=== PATIENT | male | born 1950 | race Caucasian/White ===

== ENCOUNTER → 2022-11-26 08:59 | Outpatient (BNVA) | payer MEDICARE, SELFPAY | PROVIDERS: Family Provider Nurse Practitioner; PCP Nurse Practitioner; Visit Provider Family Medicine | DX: Z00.00 Encounter for general adult medical examination without abnormal findings (principal); Z13.6 Encounter for screening for cardiovascular disorders | CPT/HCPCS: 80053; 80061; 85025 ==

== ENCOUNTER → 2022-12-02 10:23 | Outpatient (BNVA) | payer MEDICARE, SELFPAY | PROVIDERS: Family Provider Nurse Practitioner; PCP Nurse Practitioner; Visit Provider Otolaryngology | DX: R49.0 Dysphonia (principal); J38.3 Other diseases of vocal cords | CPT/HCPCS: 31575; 99205 ==

== ENCOUNTER 2022-12-08 10:12 | Day surgery (SDC) | payer MEDICARE, SELFPAY ==
[2022-12-04 08:46] VITALS: BMI 27.8
[2022-12-08] VITALS (8 sets, daily range): BP systolic 132–173; BP diastolic 83–103; PULSE 49–61; RESP 8–16; TEMP 36.1–36.6; O2SAT 96–99
--- NOTE | 2022-12-08 11:06 | ANES.PREANE2 ---
Pre-Anesthetic Assessment Height/Weight: Height 1.8 m Weight 90.718 kg Temp Pulse Resp BP Pulse Ox O2 Del Method 97.2 F L 58 L 16 173/103 97 Room Air 12/08/22 11:04 12/08/22 11:04 12/08/22 11:04 12/08/22 11:04 12/08/22 11:04 12/08/22 10:58 Operation Date: 12/08/22 12:00 Proposed Procedures p [id number] - direct laryngoscopy with biopsies J38.3(Not Applicable) - Dave Smith MD Familial anesthetic complications: None Was Beta Rachael taken within 24 hours: N/A Was Clonidine taken within 24 hours: N/A Last intake: Intake Last Liquid Date 12/07/22 Last Liquid Time 21:00 Last Solid Date 12/07/22 Last Solid Time 21:00 Social No alcohol and No tobacco Exam alert, oriented x 3, clear to auscultation bilaterally and regular rate & rhythm Airway Mallampati: Class III Dentition: full Anesthetic Plan ASA status: 2 Anesthesia: General Risk of > 500 ml blood loss (7ml/kg in children): No Medications/Allergies Home Medications Medication Instructions Recorded Confirmed Last Taken Type No Known Home Medications 11/25/22 12/04/22 Unknown History Allergies Allergy/AdvReac Type Severity Reaction Status Date / Time No Known Allergies Allergy Verified 12/08/22 10:55 [facility] Anesthesia Social History Smoking and tobacco status: former smoker Alcohol intake: former Data Anesthesia Cardiac Studies: No Data to Display
[2022-12-08] MEDS: sodium chloride 0.9% 1,000 ML 30 ML IV (11:09)
--- NOTE | 2022-12-08 11:49 | W.PM.OPSUD ---
Surgery/Procedure H&P Update DATE OF PROCEDURE: December 08, 2022 DATE H&P PERFORMED: 12/02/22 H&P UPDATE INFORMATION: I have reviewed H&P completed within last 30 days, I have examined patient prior to procedure and No changes to prior documentation CHANGES TO PREVIOUS DOCUMENTATION: no changes PREOP DIAGNOSIS: Left vocal cord lesions PRIMARY INDICATION FOR PROCEDURE: Left vocal cord lesions with chronic hoarseness PLANNED PROCEDURE: Operation Date: 12/08/22 12:00 Proposed Procedures p [id number] - direct laryngoscopy with biopsies J38.3(Not Applicable) - Dave Smith MD
[2022-12-08] MEDS: ceFAZolin 2,000 MG in sodium chloride 0.9% (plus) 50 ML 100 MG IV (11:57)
[2022-12-08] MEDS: EPINEPHrine 1 mg/mL INJ XX (12:16)
--- NOTE | 2022-12-08 12:38 | P.OP_ITS ---
Operative Report Date of procedure: December 08, 2022 Pre-op diagnosis: Left true vocal cord lesions with chronic hoarseness Post-op diagnosis: Same Post-op findings: Exophytic lobulated gross from left anterior true vocal cord Procedure done: Direct suspension microscopic laryngoscopy with biopsies of left true vocal cord lesions Implants: No implants Specimens removed/disposition: Left true vocal cord lesion specimens for permanent section Pathology: Same Surgeon: Dave Smith MD Anesthesia: General Estimated blood loss: 10 mL Complications: No complications encountered Findings: Left true vocal cord lesions causing chronic hoarseness Brief History: 71-year-old male patient who has been chronically hoarse for months. Worsening. Found on flexible laryngoscopy to have multilobulated exophytic reddish lesions extending from the anterior half of the cord up to near the anterior commissure. Patient therefore being brought to the operating room to undergo direct suspension microscopic laryngoscopy with biopsy. The procedure its risks and complications have been explained in detail. Informed consent was granted and witnessed. Risks discussed included bleeding and infection and scarring and persistent hoarseness and need for additional treatment as this is a diagnostic procedure only as well as anesthetic risks. Procedure: Description of procedure: The patient was placed on the operating table in the supine position. Adequate general endotracheal tube anesthesia was obtained. A timeout was accomplished identifying the patient date of plan procedure allergies fire risk and medications given. With all in agreement the procedure continued. The table was rotated 90 degrees. His eyes were protected. His head was dropped 15 degrees to the horizontal. They noticed 4 x 4 was placed over his upper dentition. An anterior commissure laryngoscope was inserted and placed and positioned with suspension to a Anne stand. Microscopic visualization was done with the 400 lens. The left exophytic true vocal cord lesion was biopsied and small pieces. Most of the lesion was removed. Bleeding was encountered and controlled with application of 1-1000 epinephrine on cottonoids. After several minutes the bleeding was controlled. The scope was taken down from suspension. The visualization continued directly through the scope suctioning as I withdrew the scope. Then the sponge was removed from the upper dentition. A Yankauer suction was then used to suction the oropharynx and the head was returned to the upright position. Again more suctioning was accomplished. There was no sign of any active bleeding. The patient was r eturned to anesthesia for wake-up and extubation. Patient tolerated the procedure well had an estimated blood loss of 10 mL and arrived in recovery in stable condition.
--- NOTE | 2022-12-08 13:29 | ANE.PACU2 ---
Inpatient post-anesthesia follow up: Airway intact: Yes Vital signs: Temperature 98 F Pulse Rate 50 Respiratory Rate 15 Blood Pressure 132/86 Pulse Oximetry 99 Oxygen Delivery Me thod Room Air Oxygen Flow Rate 6 Fraction of Inspir ed Oxygen Hydration adequate: Yes Nausea and vomiting: No Pain level: 1 Mental status: Baseline
== END 2022-12-08 13:50 | disposition home or self-care (01) ==
PROVIDERS: PCP Family Medicine; Visit Provider Otolaryngology
PROC: 0CJS8ZZ Inspection of Larynx, Via Natural or Artificial Opening Endoscopic (ICD-10-PCS; CPT 31536; principal; 2022-12-08 12:00)
DX: R49.0 Dysphonia (principal); C32.0 Malignant neoplasm of glottis; Z87.891 Personal history of nicotine dependence
CPT/HCPCS: 31536; 88305; 88342; J0171; J0330; J0690; J1100; J2405; J2704; J3010; J3490; J7030

== ENCOUNTER 2022-12-10 14:49 | Outpatient (CLI) | payer MEDICARE, SELFPAY ==
--- NOTE | 2022-12-10 15:02 | CT_ITS ---
WS: [id number] CT NECK TECHNIQUE: Contrast-enhanced CT of the neck with coronal and sagittal reformatted images. CLINICAL INFORMATION: R49.0 - Dysphonia COMPARISON: None. DLP: 284.[address] scans at [facility] use at least one of these dose optimization techniques: automated e xposure control; mA and/or kV adjustment per patient size (includes targeted exams where dose is matc hed to clinical indication); or iterative reconstruction. FINDINGS: LEFT thyroid nodule measuring 2.3 x 1.9 cm. Small retention cyst or polyp LEFT maxillary sinus. Masto id air cells are well aerated. Mild mucosal thickening in the maxillary sinuses. Tongue base appears normal. Filling of the RIGHT valleculae with low-attenuation fluid or secretions. Recommend correlati on with the recent endoscopy. In addition polypoid LEFT vocal cord lesion measuring 8 mm. Normal piri form sinuses. Normal subglottic airway. Emphysematous changes in the lung apices.Parotid glands are normal. Normal submandibular glands. No c ervical lymphadenopathy. Mild carotid bulb calcification. Mild spondylitic changes cervical spine. IMPRESSION: 1. Polypoid exophytic lesion projecting medially from the LEFT vocal cord measuring 8 mm suspicious for neoplasm. Recommend correlation with recent endoscopy and biopsy. 2. Low-attenuation fluid or secretions within the RIGHT vallecula. Recommend correlation with recent endoscopy. 3. No cervical lymphadenopathy. 4. Salivary glands are normal. 5. Low-attenuation LEFT thyroid nodule measuring 2.3 x 1.9 cm. 6. No other acute findings.
[2022-12-10] MEDS: iohexol 350 mg/mL 500 mL Btl (per mL) IV (15:21)
== END 2022-12-10 14:50 | disposition home or self-care (01) ==
LOC: RAD 14:52
PROVIDERS: PCP Family Medicine; Visit Provider Family Medicine
DX: R49.0 Dysphonia (principal); J38.3 Other diseases of vocal cords; E04.1 Nontoxic single thyroid nodule
CPT/HCPCS: 70491; Q9967

== ENCOUNTER 2022-12-15 11:55 | Outpatient (CLI) | payer MEDICARE, SELFPAY ==
--- NOTE | 2022-12-15 12:15 | MR_ITS ---
WS: [id number] MRI LUMBAR SPINE WITH CONTRAST TECHNIQUE: Sagittal T1, T2 and STIR imaging. Axial T1 and T2 imaging. Post gadolinium imaging was obt ained. CLINICAL INFORMATION: M54.16 - Radiculopathy, lumbar region COMPARISON: None. FINDINGS: Mild lumbar curve. No acute compression. L1-L2: Mild annular bulging with slight narrowing of the LEFT subarticular recess. Mild facet arthrop athy. Mild LEFT foraminal narrowing. L2-L3: Mild annular bulging. Impingement LEFT subarticular recess and traversing LEFT L3 nerve root. Mild facet arthropathy. Mild LEFT foraminal narrowing with LEFT foraminal protrusion. L3-L4: Shallow central disc protrusion. Moderate central canal stenosis. Impingement traversing L4 ne rve roots. Moderate facet arthropathy. Small bilateral foraminal protrusions with moderate RIGHT and mild LEFT foraminal narrowing. Moderate facet arthropathy. L4-L5: Mild annular bulging with moderate central canal stenosis. Moderate facet arthropathy with lig amentum flavum hypertrophy. Impingement traversing L5 nerve roots bilaterally RIGHT greater than LEFT . Moderate RIGHT and mild LEFT foraminal narrowing. L5-S1: Shallow LEFT paracentral protrusion. Slight impingement LEFT S1 nerve root. Moderate to advan maria ines facet arthropathy. Tiny annular fissure. Foramen are patent. Visualized pelvic bony structures: Normal. Paravertebral soft tissues: Normal. IMPRESSION: 1. Mild lumbar curve. No acute compression. 2. Moderate central canal stenosis L3-4 with central disc protrusion combination with facet arthropa thy. Impingement traversing L4 nerve roots bilaterally. 3. Moderate central canal stenosis L4-5 impinges the traversing L5 nerve roots greater than LEFT. Mo derate RIGHT L4-5 foraminal narrowing impinges the exiting RIGHT L4 nerve root. 4. Moderate RIGHT L3-4 foraminal narrowing with a small RIGHT foraminal protrusion. 5. Narrowing of the LEFT L2-3 subarticular recess. Mild LEFT L2-3 foraminal narrowing. 6. Shallow LEFT paracentral protrusion L5-S1 impinges the traversing LEFT S1 nerve root in the subar ticular recess
[2022-12-15] MEDS: gadobenate dimeglumine 20 mL vial IV (12:48)
== END 2022-12-15 11:56 | disposition home or self-care (01) ==
PROVIDERS: PCP Family Medicine; Visit Provider Family Medicine
DX: M54.16 Radiculopathy, lumbar region (principal); M48.061 Spinal stenosis, lumbar region without neurogenic claudication; M51.27 Other intervertebral disc displacement, lumbosacral region
CPT/HCPCS: 72158; A9577

== ENCOUNTER → 2022-12-16 10:11 | Outpatient (BNVA) | payer MEDICARE, SELFPAY | PROVIDERS: PCP Family Medicine; Visit Provider Otolaryngology | DX: C32.0 Malignant neoplasm of glottis (principal); E04.1 Nontoxic single thyroid nodule | CPT/HCPCS: 99214 ==

== ENCOUNTER 2022-12-25 07:29 | Outpatient (CLI) | payer MEDICARE, SELFPAY ==
--- NOTE | 2022-12-25 09:15 | US_ITS ---
WS: [id number] ULTRASOUND-GUIDED LEFT THYROID NODULE FNA HISTORY: Thyroid nodule seen on neck CT of 12/10/2022. Procedure, risks, and complications were explained to the patient. Consent has been obtained. Ultrasound evaluation of the thyroid is performed prior to to the biopsy. The mass described on recen t CT corresponds to a multiloculated colloid cyst. No increased vascularity. The skin is cleansed with ChloraPrep and anesthetized with 1% buffered lidocaine. FNA performed with 25 gauge needles. chief nuclear medicine technologist is present to fix slides. IMPRESSION: Uncomplicated FNA of a LEFT thyroid nodule. Nodules in the inferior pole of the LEFT thyroid. Most co nsistent with a colloid nodule. Final pathology results pending.
== END 2022-12-25 07:30 | disposition home or self-care (01) ==
LOC: RAD 07:30
PROVIDERS: PCP Family Medicine; Visit Provider Otolaryngology
DX: E04.1 Nontoxic single thyroid nodule (principal)
CPT/HCPCS: 10005; 88173

== ENCOUNTER 2023-01-04 06:00 | Outpatient (RCR) | payer MEDICARE, SELFPAY | END 2023-02-02 23:59 | disposition home or self-care (01) | LOC: APT 06:00 | PROVIDERS: PCP Family Medicine; Visit Provider Family Medicine | DX: M54.16 Radiculopathy, lumbar region (principal) | CPT/HCPCS: 97110; 97161; 97530 ==

== ENCOUNTER 2023-01-07 12:19 | Outpatient (CLI) | payer MEDICARE, SELFPAY ==
--- NOTE | 2023-01-07 12:30 | CTR_ITS ---
PROCEDURE INFORMATION: Exam: CT Chest With Contrast; Diagnostic Exam date and time: 01/07/2023 1:20 PM Age: 72 years old Clinical indication: Condition or disease; Other: Laryngeal cancer; Initial oncological staging assessment; Additional info: Laryngeal cancer, smoking HX. Staging exam.No history of trauma or recent surgery is provided. TECHNIQUE: Imaging protocol: Diagnostic computed tomography of the chest with contrast. 293image(s) are provided. Radiation optimization: All CT scans at this facility use at least one of these dose optimization techniques: automated exposure control; mA and/or kV adjustment per patient size (includes targeted exams where dose is matched to clinical indication); or iterative reconstruction. Contrast material: OMNI 350; Contrast volume: 100 ml; Contrast route: INTRAVENOUS (IV); Other technique: Axial images are available with sagittal and coronal reconstruction views. Automated dose exposure control is utilized. The DLP is 586.38. REPORTING DATA: Count of CT and Cardiac NM exams in prior 12 months: This patient has received 2 known CTs and 0 known cardiac nuclear medicine studies in the 12 months prior to the current study. COMPARISON: 1. MR lumbar spine wo/w con [id number] 12/15/2022 12:[address] neck w con* [id number] 12/10/2022 3:18 PM. No recent chest radiograph or CT chest is currently available. CT abdomen of 2009. RADIATION DOSE METRICS: Total DLP (mGy-cm): 586.38 FINDINGS: Thyroid: There is heterogeneity along with cystic nodularity of the left thyroid lobe predominantly similar overall. Trachea: The central thoracic airways appear grossly patent overall. The previously described nodular lobulated focus of the left laryngeal level is less conspicuous currently. Consider if there history of interval intervention this may also be respiratory phase related along with apposition centrally currently obscuring. Lungs: There is minimal subsegmental atelectasis versus post inflammatory scarring demonstrated. Upper lung zone aeration appears improved in the interval. No lobar consolidation is appreciated. There is some minimal ground-glass attenuation for example including subpleural 2 mm right upper lobe image 29. There is some minimal lung fissure thickening. For example 2 mm right image 34. There is also some minimal nodularity for example with bronchovascular thickening 2 mm anterior left upper lobe image 24. Fleischner Society follow up recommendations for incidental nodules are not indicated. Follow up per the patient's medical condition. Pleural spaces: No pneumothorax or pleural effusion is appreciated. Heart: No significant pericardial fluid collection is appreciated. Coronary arteries: There are some coronary arterial calcifications present. Mediastinal space: There is some esophageal air present along with some overall esophageal wall thickening. Lymph nodes: There is some subcentimeter predominant axillary lymph nodes as well as lower neck lymph nodes. There are subcentimeter predominant mediastinal and hilar lymph nodes overall present. Vasculature: There are atherosclerotic aortic changes overall with no thoracic saccular aneurysmal dilatation or intimal irregularity appreciated. Liver: There appears to be some mild hepatic steatosis. Pancreas: There appears to be some subtle nodular thickening of the pancreatic tail level similar. Spleen: There is some hyperdense or enhancing focus of the inferior spleen measuring approximately 1.5 cm in diameter. Adrenal glands: There is some adrenal hypertrophy with some nodularity for example at the medial limb of the left adrenal gland measuring 1.4 cm with incidental lipomatous appearance slightly larger in the interval. Stomach and bowel: There is a small sliding-type hiatal hernia demonstrated with slight gastroesophageal fold thickening. Intraperitoneal space: There is a similar otherwise interval appearance of the included intraperitoneal space, upper abdominal structures. Bones/joints: Osseous alignment is maintained.No displaced fracture or dislocation is appreciated.There is slightly decreased bone mineralization overall. There is some thoracic spondylosis present. There are some areas of endplate depression and Schmorl's node type appearance which may represent degeneration for example including at the T10 as well as the L1 level. Soft tissues: No radiopaque foreign body or subcutaneous emphysema is appreciated. Other findings: No other significant interval changes are appreciated. CT/CT chest w con* [id number] IMPRESSION: 1. No pulmonary parenchymal mass or central mediastinal maria fernanda enlargement is appreciated. There are however some subtle subcentimeter nodular foci and areas of fissure thickening which could also be seen with some chronic postinflammatory related change. Consider comparison to any previous older CT chest if clinically available. Otherwise consider continued follow-up. 2. There is an rounded area of splenic enhancement demonstrated at the anterior aspect on the axial view. This was not appreciated on the previous noncontrast CT and could also represent some hemangioma lesional type related change. 3. There is some gastroesophageal fold thickening as well as overall throughout the thoracic esophagus. Some sequela of chronic inflammation could also present in this fashion. With the overall constellation of the findings, consider dedicated PET-CT. COMMENTS: Consistent with the [employer]'s Incidental Findings Committee white paper (J Am Karissa Radiol 2015): In patients aged 35 years and older with an incidental thyroid nodule equal to or greater than 1.[address], MRI or extrathyroidal US, further evaluation with dedicated thyroid US is recommended for patients with normal life expectancy and without comorbidities. For smaller nodules without suspicious features, no further evaluation or follow up is recommended.
[2023-01-07] MEDS: iohexol 350 mg/mL 500 mL Btl (per mL) IV (12:41)
== END 2023-01-07 12:20 | disposition home or self-care (01) ==
PROVIDERS: PCP Family Medicine; Visit Provider Radiology Radiation Oncology
DX: C32.0 Malignant neoplasm of glottis (principal); E04.1 Nontoxic single thyroid nodule; Z87.891 Personal history of nicotine dependence
CPT/HCPCS: 71260; Q9967

== ENCOUNTER 2023-01-29 08:06 | Oncology outpatient (recurring) (ONCR) | payer MEDICARE, SELFPAY ==
--- NOTE | 2023-01-12 12:13 | ONCRAD TMN_ITS ---
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 ID: [id number], Energy: 15X/6X, Dose/Fx (cGy): 225, #Fx: , Dose Correction (cGy): 0, Total Dose (cGy): 450, Start Date: 01/11/2023, Elapsed Days: 1 Reason for visit: The patient is being seen today as part of their regularly scheduled weekly on treatment visits to assess for acute toxicities from radiotherapy. Review of Systems: Doing well with treatment. CT chest revealed no obvious lesions. Sub centimeter findings noted. No old CT for comparison done in the past Vital Signs: Performed on 01/12/2023 8:14 AM BMI - 27.993 kg/m2 (high), Height - 72 in, Weight - 206.4 lbs, Temperature - 96.7 f, Pulse - 64 /min, Respiration - 16 /min, O2 Sat - 98 %, Pain - 0, Fatigue - 0 and BP - 158/ 86 mm(hg)(high/). Physical Exam: Imaging: Radiation therapy imaging related to accurate target localization (i.e. KV, MV and CBCT) was reviewed. Appropriate changes, if any, were made to ensure treatment accuracy. Plan: Good tolerance of treatment. Add salt and soda gargles. Plan to repeat chest CT in 6 months. Signed by: Lazaro Nicholson 01/12/2023 12:12:41 PM Telemedicine Consent Patient seen today via Telemedicine by agreement and consent of patient. Telemedicine technology used during the visit include audio and, as available, review of images. This patient encounter is appropriate and reasonable under the circumstances given the patient???s particular presentation at this time. The patient has been advised of the potential risks and limitations of this mode of treatment (including but not limited to the absence of in-person examination) and has agreed to be treated in a remote fashion in spite of them. Any and all of the patient???s/patient???s family???s questions on this issue have been answered and I have made no promises or guarantees to the patient. The patient has also been advised to contact this office for worsening conditions or problems, and seek emergency medical treatment and/or call 911 if the patient deems either necessary.
--- NOTE | 2023-01-20 08:40 | ONCRAD TMN_ITS ---
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 ID: [id number], Energy: 15X/6X, Dose/Fx (cGy): 225, #Fx: , Dose Correction (cGy): 0, Total Dose (cGy): 1,575, Start Date: 01/11/2023, Elapsed Days: 8 Reason for visit: The patient is being seen today as part of their regularly scheduled weekly on treatment visits to assess for acute toxicities from radiotherapy. Review of Systems: Variable hoarseness. No sore throat. Gargling with salt and soda. Swallowing and eating ok. Gaining some weight. Normal activity level. Vital Signs: Performed on 01/19/2023 8:22 AM BMI - 28.21 kg/m2 (high), Height - 72 in, Weight - 208 lbs, Temperature - 97.5 f, Pulse - 62 /min, Respiration - 16 /min, O2 Sat - 99 %, Pain - 0, Fatigue - 2 and BP - 133/ 78 mm(hg). Physical Exam: Imaging: Radiation therapy imaging related to accurate target localization (i.e. KV, MV and CBCT) was reviewed. Appropriate changes, if any, were made to ensure treatment accuracy. Plan: Good tolerance of treatment. Discussed skin care. Continue treatment as planned. Signed by: Lazaro Nicholson 01/20/2023 8:39:18 AM Telemedicine Consent Patient seen today via Telemedicine by agreement and consent of patient. Telemedicine technology used during the visit include audio and, as available, review of images. This patient encounter is appropriate and reasonable under the circumstances given the patient???s particular presentation at this time. The patient has been advised of the potential risks and limitations of this mode of treatment (including but not limited to the absence of in-person examination) and has agreed to be treated in a remote fashion in spite of them. Any and all of the patient???s/patient???s family???s questions on this issue have been answered and I have made no promises or guarantees to the patient. The patient has also been advised to contact this office for worsening conditions or problems, and seek emergency medical treatment and/or call 911 if the patient deems either necessary.
--- NOTE | 2023-01-26 08:33 | ONCRAD TMN_ITS ---
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 ID: [id number], Energy: 15X/6X, Dose/Fx (cGy): 225, #Fx: , Dose Correction (cGy): 0, Total Dose (cGy): 2,700, Start Date: 01/11/2023, Elapsed Days: 15 Reason for visit: The patient is being seen today as part of their regularly scheduled weekly on treatment visits to assess for acute toxicities from radiotherapy. Review of Systems: Patient reports that he is vocal quality has improved slightly. He continues with salt water and baking soda rinses. He remains physically active and is present today with his . Vital Signs: Performed on 01/26/2023 8:18 AM BMI - 28.291 kg/m2 (high), Height - 72 in, Weight - 208.6 lbs, Temperature - 97.5 f, Pulse - 72 /min, Respiration - 16 /min, O2 Sat - 99 %, Pain - 0, Fatigue - 3 and BP - 149/ 93 mm(hg)(high). Physical Exam: Alert and oriented male appearing his stated age. Skin in the treatment area is intact without erythema or desquamation. Imaging: Radiation therapy imaging related to accurate target localization (i.e. KV, MV and CBCT) was reviewed. Appropriate changes, if any, were made to ensure treatment accuracy. Plan: Continue prescribed radiation therapy. Signed by: Epi Corley 01/26/2023 9:06:05 AM
== END 2023-01-29 23:59 | disposition home or self-care (01) ==
PROVIDERS: PCP Family Medicine; Visit Provider Radiology Radiation Oncology
DX: Z51.0 Encounter for antineoplastic radiation therapy (principal); C32.0 Malignant neoplasm of glottis
CPT/HCPCS: 77290; 77295; 77300; 77334; 77336; 77387; 77412; 99024

== ENCOUNTER 2023-02-02 08:01 | Oncology outpatient (recurring) (ONCR) | payer MEDICARE, SELFPAY ==
--- NOTE | 2023-02-02 08:51 | ONCRAD TMN_ITS ---
Radiation Oncology Weekly Treatment Management Patient: Kyler Perry> MR#: [id number] : 1950> Attending Physician: Dr. 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 ID: [id number], Energy: 15X/6X, Dose/Fx (cGy): 225, #Fx: , Dose Correction (cGy): 0, Total Dose (cGy): 3,825, Start Date: 01/11/2023, Elapsed Days: Reason for visit: The patient is being seen today as part of their regularly scheduled weekly on treatment visits to assess for acute toxicities from radiotherapy. Review of Systems: Patient complaint today about not being able to sleep. Upon review he has been waking up at 1 or 2 in the morning and not being able to get back to sleep for 2 to 3 hours. Of note he normally gets up at 4-4 30. 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 We talked about some different things that he can try to decrease his stress as well as some different supplements that he can use to help with more sound sleep. He also has a mildly sore throat but is eating normal foods Vital Signs: Performed on 02/02/2023 8:29 AM BMI - 28.481 kg/m2 (high), Height - 72 in, Weight - 210 lbs, Temperature - 97.3 f, Pulse - 65 /min, Respiration - 16 /min, O2 Sat - 97 %, Pain - 0, Fatigue - 0 and BP - 126/ 74 mm(hg). Physical Exam: Skin is without changes. Oral cavity was without thrush or lesions. Imaging: Radiation therapy imaging related to accurate target localization (i.e. KV, MV and CBCT) was reviewed. Appropriate changes, if any, were made to ensure treatment accuracy. Plan: Patient continues to do well. He has no clinical changes on examination. He has had a mild sore throat. He has gained weight. And at this point we will continue with his treatments as planned. Signed by: Dr. Tere Montemayor 02/02/2023 8:50:10 AM
== END 2023-02-02 23:59 | disposition home or self-care (01) ==
PROVIDERS: PCP Family Medicine; Visit Provider Radiology Radiation Oncology
DX: Z51.0 Encounter for antineoplastic radiation therapy (principal); C32.0 Malignant neoplasm of glottis
CPT/HCPCS: 77014; 77387; 77412; 99024

== ENCOUNTER 2023-02-19 08:06 | Oncology outpatient (recurring) (ONCR) | payer MEDICARE, SELFPAY ==
--- NOTE | 2023-02-09 09:54 | ONCRAD TMN_ITS ---
Radiation Oncology Weekly Treatment Management Patient: Kyler Perry MR#: [id number] : 1950 Attending Physician: Dr. Tere Montemayor Date of Service: 02/09/2023 Fractions: 2 of Chief complaint: Patient continues to have a mildly sore throat. This is even sore all the time. It comes and goes. His appetite remains good. He did pick up man some valerian root and a spray he can use in the middle the night to help with his insomnia and this has resolved his insomnia. 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 ID: [id number], Energy: 15X/6X, Dose/Fx (cGy): 225, #Fx: , Dose Correction (cGy): 0, Total Dose (cGy): 4,950, Start Date: 01/11/2023, Elapsed Days: Reason for visit: The patient is being seen today as part of their regularly scheduled weekly on treatment visits to assess for acute toxicities from radiotherapy. Review of Systems: As above Vital Signs: Performed on 02/09/2023 8:30 AM BMI - 28.617 kg/m2 (high), Height - 72 in, Weight - 211 lbs, Temperature - 97.1 f, Pulse - 73 /min, Respiration - 16 /min, O2 Sat - 97 %, Pain - 0, Fatigue - 0 and BP - 130/ 80 mm(hg). Physical Exam: On examination his skin is without changes. He has no evidence of mucositis. Voice quality is gravelly. Imaging: Radiation therapy imaging related to accurate target localization (i.e. KV, MV and CBCT) was reviewed. Appropriate changes, if any, were made to ensure treatment accuracy. Plan: We will continue with his treatments as planned. Signed by: Dr. Tere Montemayor 02/09/2023 9:52:43 AM
--- NOTE | 2023-02-16 10:16 | ONCRAD TMN_ITS ---
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 ID: [id number], Energy: 15X/6X, Dose/Fx (cGy): 225, #Fx: , Dose Correction (cGy): 0, Total Dose (cGy): 5,850, Start Date: 01/11/2023, Elapsed Days: 35 Reason for visit: The patient is being seen today as part of their regularly scheduled weekly on treatment visits to assess for acute toxicities from radiotherapy. Review of Systems: No complaints. Eating all too well and has gained weight. Gargling with salt and soda. Bread hard to swallow other foods go down ok. Using home made skin treatment made by his . Hoarseness comes and goes. Vital Signs: Performed on 02/16/2023 8:14 AM BMI - 28.753 kg/m2 (high), Height - 72 in, Weight - 212 lbs, Temperature - 97.5 f, Pulse - 65 /min, Respiration - 16 /min, O2 Sat - 97 %, Pain - 0, Fatigue - 5 and BP - 144/ 84 mm(hg)(high/). Physical Exam: Hoarse but intelligible speech. Minimal erythema over neck region. Imaging: Radiation therapy imaging related to accurate target localization (i.e. KV, MV and CBCT) was reviewed. Appropriate changes, if any, were made to ensure treatment accuracy. Plan: Good tolerance of treatment. Will continue as planned. Signed by: Lazaro Nicholson 02/16/2023 10:13:56 AM
--- NOTE | 2023-02-22 06:02 | N.ONRD TS_ITS ---
Radiation Oncology Treatment Summary Patient: Kyler Perry MR#: [id number] : 1950 Age: 72 Sex: Male Dictated by: Lazaro Nicholson Date of Service: 02/19/2023 Referring Physician(s) : Dr. 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 ID: [id number], Energy: 15X/6X, Dose/Fx (cGy): 225, #Fx: , Dose Correction (cGy): 0, Total Dose (cGy): 6,525, Start Date: 01/11/2023, End Date: 02/19/2023, Elapsed Days: 39 Clinical Summary: The patient tolerated RT well. He had stable hoarseness and modest sore throat with no skin erythema. Plan: End of treatment today. Follow up in one month. Follow up with Dr. Smith when Dr. Smith returns to work in 05/2023.. Signed by: Lazaro Nicholson>02/22/2023 6:01:34 AM <<Signature on File>>
== END 2023-03-04 23:59 | disposition home or self-care (01) ==
PROVIDERS: PCP Family Medicine; Visit Provider Radiology Radiation Oncology
DX: Z51.0 Encounter for antineoplastic radiation therapy (principal); C32.0 Malignant neoplasm of glottis
CPT/HCPCS: 77014; 77336; 77387; 77412; 77417; 77427; 99024

== ENCOUNTER → 2023-05-12 08:59 | Outpatient (BNVA) | payer MEDICARE, SELFPAY | PROVIDERS: PCP Family Medicine; Visit Provider Otolaryngology | DX: C32.0 Malignant neoplasm of glottis (principal); J38.7 Other diseases of larynx; Z08 Encounter for follow-up examination after completed treatment for malignant neoplasm | CPT/HCPCS: 31575; 99213; 99214 ==

== ENCOUNTER → 2023-06-09 08:59 | Outpatient (BNVA) | payer MEDICARE, SELFPAY | PROVIDERS: PCP Family Medicine; Visit Provider Otolaryngology | DX: C32.0 Malignant neoplasm of glottis (principal); J38.7 Other diseases of larynx | CPT/HCPCS: 31575; 99213 ==

== ENCOUNTER 2023-07-14 08:16 | Outpatient (CLI) | payer MEDICARE, SELFPAY ==
--- NOTE | 2023-07-14 09:30 | CT_ITS ---
WS: [id number] CT chest w con* [id number] HISTORY: Smoking hx. Vocal cord ca. TIny lung nodules on CT TECHNIQUE: Axial imaging performed through the thorax. Coronal and sagittal reformats are submitted. All CT scans at [facility] use at least one of these dose optimization techniques: automated exposure control; mA and/or kV adjustment per patient size (includes targeted exams where dose is mat ched to clinical indication); or iterative reconstruction. CONTRAST: Omnipaque 350; 75 mL IV. DLP: 675.29 mGy.cm COMPARISON: Chest CT 01/07/2023 Lungs and central airway: Pulmonary hyperinflation from emphysema. Mild interstitial thickening is ch ronic. There is no pulmonary mass or nodule. No suspicious areas of groundglass attenuation. No pneum onia. Pleura: Normal. No pleural effusion. Heart and pericardium: Normal size heart with no pericardial effusion. Mediastinum and mai: No mediastinum or hilar adenopathy. Vessels: Very mild atherosclerosis aorta. Normal size pulmonary artery. Moderate coronary artery calc ification. Chest wall and lower neck: Reidentified is the LEFT thyroid nodule measuring 1.8 x 2.5 cm. No increas e in size. This nodule is undergone prior biopsy. Upper abdomen: Hypervascular well-circumscribed mass in the anterior spleen measures 1.8 x 1.6 cm. No change since 01/07/2023. This is probably a hemangioma. No adrenal mass. Small hiatal hernia. Mild he patic steatosis. Osseous structures: Incompletely visualized L2 compression fracture. Mild compression deformity T10. No new fracture. IMPRESSION: 1. No suspicious pulmonary masses or nodules. Mild interstitial lung disease is stable. There are no new masses. 2. No mediastinal or hilar adenopathy. 3. Stable LEFT thyroid nodule measuring 1.8 x 2.5 cm. Biopsy was performed on 12/25/2022. 4. Moderate coronary artery calcification. 5. Splenic hypervascular mass measuring 1.8 x 1.6 cm. No increase in size. 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
[2023-07-14] MEDS: iohexol 350 mg/mL 500 mL Btl (per mL) IV ×2 (09:56→09:59)
--- NOTE | 2023-07-14 10:00 | CT_ITS ---
WS: [id number] CT NECK TECHNIQUE: Contrast-enhanced CT of the neck with coronal and sagittal reformatted images. CLINICAL INFORMATION: Smoking hx, indeterminant pulm nodules COMPARISON: None. DLP: 239.[address] scans at [facility] use at least one of these dose optimization techniques: automated e xposure control; mA and/or kV adjustment per patient size (includes targeted exams where dose is matc hed to clinical indication); or iterative reconstruction. FINDINGS: Low-attenuation solid LEFT thyroid nodule measuring 2.1 x 2.7 cm. Slightly nodular RIGHT thyroid. Cav ernous carotid calcification. Mastoid air cells are well aerated. Paranasal sinuses are well aerated. Mild mucosal thickening in maxillary sinuses with small retention cysts. Normal posterior nasopharynx . Normal parapharyngeal fat. Some images degraded at the tongue base due to dental artifact. Submandi bular glands are normal. Parotid glands are normal. Mild spondylitic changes cervical spine. No cervical lymphadenopathy. Previously described LEFT vocal cord polypoid lesion has been treated or resected compared to previou s. No evidence of glottic lesion today. Subglottic airway is patent. Persistent low-attenuation filli ng of the RIGHT vallecula is unchanged in appearance since 12/10/2022. Recommend direct visualization. Suggestion of a polypoid low-attenuation lesion in this location. Carotid bulb calcification. IMPRESSION: 1. Previously described LEFT vocal cord polypoid lesion has been treated or resected. 2. Low-attenuation peripheral enhancing soft tissue filling the RIGHT vallecula suspicious for polyp oid lesion. Recommend direct visualization. 3. No cervical lymphadenopathy. 4. LEFT thyroid nodule measuring 2.7 x 2.0 cm slightly increased in size compared to previous. This could be followed up with thyroid ultrasound.
== END 2023-07-14 08:17 | disposition home or self-care (01) ==
LOC: RAD 08:16
PROVIDERS: PCP Family Medicine; Visit Provider Radiology Radiation Oncology
DX: J38.3 Other diseases of vocal cords (principal); E04.1 Nontoxic single thyroid nodule; I70.0 Atherosclerosis of aorta; K76.0 Fatty (change of) liver, not elsewhere classified; I25.10 Atherosclerotic heart disease of native coronary artery without angina pectoris; C32.0 Malignant neoplasm of glottis
CPT/HCPCS: 31575; 70491; 71260; 82565; 84520; 99213; Q9967

== ENCOUNTER 2023-07-14 08:16 | Outpatient (CLI) | payer MEDICARE, SELFPAY ==
[2023-07-14 09:47] LABS: Blood Urea Nitrogen 20 mg/dL (8-23)
== END 2023-07-14 08:17 | disposition home or self-care (01) ==
LOC: RAD 08:16
PROVIDERS: PCP Family Medicine; Visit Provider Radiology Radiation Oncology
DX: C32.0 Malignant neoplasm of glottis (principal)
CPT/HCPCS: 82565; 84520

== ENCOUNTER 2023-07-28 11:30 | Oncology outpatient (recurring) (ONCR) | payer MEDICARE, SELFPAY ==
--- NOTE | 2023-07-28 12:28 | ONCRAD EPV_ITS ---
Radiation Oncology Established Patient Visit Patient: Kyler Perry [id number] : 1950 Age: 72 Sex: Male Dictated by: Dr. 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 He is here today to review the results of his most recent scans. He had a CT of the chest and a CT of the neck. No residual or recurrent disease was noted. 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 His voice quality is good. He has no difficulty swallowing. Current Medications: Allergies: Current Complaints / Review of Systems: . Vital Signs: Performed on 07/28/2023 11:34 AM BMI - 29.431 kg/m2 (high), Height - 72 in, Weight - 217 lbs, Temperature - 96.9 f, Pulse - 61 /min, Respiration - 18 /min, O2 Sat - 98 %, Pain - 0, Fatigue - 0 and BP - 164/ 96 mm(hg)(high). Physical Exam: General: Alert and oriented x 3. No acute distress. HEENT: Normocephalic, atraumatic. Extraocular Movements Intact: Pupils Equal, Round, Reactive to Light and Accommodation: Sclerae anicteric LUNGS: Respiratory rate regular nonlabored HEART: Regular rate and rhythm EXTREMITIES: No peripheral edema is identified NEUROLOGIC: Alert and orient x 3. Gait and speech within normal limits. Performance Status: 10 Lab: None pending. Pathology: Primary, c32.0 - malignant neoplasm of glottis, Diagnosed 12/08/2022 (active) . Imaging: See HPI Impression: Stage I squamous carcinoma larynx Plan: I reviewed the results of his scans with him and his . We talked about additional follow-up. We talked about how with the early stage larynx cancer as they really do not show up on any imaging. We talked about the best way to follow and do checkups is through laryngoscopy. This point we will set up referral to Dr. Mckenzie to see if he can see him in 6 months to perform his next laryngoscopy. I went over the symptoms to watch for if he should have any changes in his voice quality he will let us know and we will get him into the physician in the ear nose and throat department earlier. Will otherwise see him back on an as-needed basis Signed by: 07/28/2023 12:27:36 PM <<Signature on File>> Time spent with patient:25 CPT Code: CPT Code:
== END 2023-08-03 23:59 | disposition home or self-care (01) ==
LOC: ONCMED 11:31
PROVIDERS: PCP Family Medicine; Visit Provider Radiology Radiation Oncology
DX: C32.0 Malignant neoplasm of glottis (principal)
CPT/HCPCS: 99213